=== PATIENT | female | born 1985 | race Caucasian/White ===

== ENCOUNTER → 2016-10-25 | Outpatient (CLI) | payer OTHER | LOC: HPND 09:50 | PROVIDERS: ATTEND Obstetrics & Gynecology | DX: Z36 Encounter for antenatal screening of mother (principal) | CPT/HCPCS: 36416; 76813 ==

== ENCOUNTER → 2016-12-06 | Outpatient (CLI) | payer OTHER | LOC: HPND 09:58 | PROVIDERS: ATTEND Obstetrics & Gynecology | DX: O35.5XX0 Maternal care for (suspected) damage to fetus by drugs, not applicable or unspecified (principal) | CPT/HCPCS: 76811 ==

== ENCOUNTER → 2017-01-03 | Outpatient (CLI) | payer OTHER | LOC: HPND 13:23 | PROVIDERS: ATTEND Obstetrics & Gynecology | DX: O99.322 Drug use complicating pregnancy, second trimester (principal); O35.5XX0 Maternal care for (suspected) damage to fetus by drugs, not applicable or unspecified; Z3A.23 23 weeks gestation of pregnancy | CPT/HCPCS: 76816; 76825; 76827; 93325 ==